=== PATIENT | female | born 1960 | race Caucasian/White ===

== ENCOUNTER → 2016-12-18 | Outpatient (CLI) | payer BC | END | disposition home or self-care (01) | LOC: GMAB 10:14 | PROVIDERS: ATTEND Family Medicine | DX: Z00.01 Encounter for general adult medical examination with abnormal findings (principal) ==

== ENCOUNTER → 2016-12-21 | Outpatient (CLI) | payer BC ==
--- NOTE | 2016-12-21 11:39 | CT ---
EXAM DESCRIPTION: Abdomen/Pelvis w/wo Contrast CLINICAL HISTORY: HEMATURIA COMPARISON: None. TECHNIQUE: And postcontrast CT images of the abdomen and pelvis are obtained. CT scan done according to ALARA (As Low As Reasonably Achievable). FINDINGS: Visualized lung bases are unremarkable. Liver, spleen, pancreas, and adrenal glands are unremarkable. Surgical clips from cholecystectomy are seen without biliary tract obstruction. Vasculature is unremarkable. Kidneys show no abnormal calcifications. 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 There is normal cortical enhancement. No solid renal mass is seen. No ureteral obstruction is identified. Contrast fills the urinary bladder on delayed images. There are surgical absence of uterus. The ovaries are not identified. Mixed is unremarkable. No small bowel obstruction is seen. Mildly increased amount of formed fecal material in the right to transverse colon is seen. No significant diverticular disease is appreciated. No pathologic lymphadenopathy is identified. The osseous structures show no aggressive bony lesions. Mild degenerative changes of the spine are seen. IMPRESSION: No acute findings on CT of the abdomen and pelvis. No CT etiology for patient's hematuria. Mild patient or obstipation of the colon. Electronically signed by: Aiden Matos MD 12/21/2016 11:38 AM CDT
== END | disposition home or self-care (01) ==
LOC: CT 09:21
PROVIDERS: ATTEND Family Medicine
DX: R31.1 Benign essential microscopic hematuria (principal)

== ENCOUNTER → 2017-05-13 | Outpatient (CLI) | payer BC ==
--- NOTE | 2017-05-14 11:22 | MAM ---
EXAM DESCRIPTION: 3D Screening BILATERAL CLINICAL HISTORY: 56 yearsFemaleSCREENING. No complaints. Maternal grandmother with ovarian cancer. Postmenopausal. Currently on HRT.. COMPARISON: 2-D digital screening bilateral examination 08/25/2014. No prior reports available. TECHNIQUE: Bilateral CC and MLO projection full-field images, 3-D tomosynthesis digital mammographic technique. Also bilateral synthesized CC/ MLO full-field images. CAD not utilized. FINDINGS: The breast parenchymal density pattern is: Scattered areas of fibroglandular density. No skin thickening or nipple retraction oval-shaped mass density with partially well-circumscribed borders in the posterior third of the lower outer quadrant of the right breast at the 830 clock position, approximately 5.5 cm from the nipple. Approximately 1.5 cm long axis. This may have been present on the prior study. No definite calcifications. Bilateral axillary lymph nodes. No focal asymmetry , and no suspicious microcalcifications bilaterally. No focal mass density in the left breast. IMPRESSION: BI-RADS CATEGORY: 0 - INCOMPLETE- Need additional imaging evaluation. FOLLOW-UP: Recall for additional imaging: Targeted ultrasound of the posterior third, lower outer quadrant right breast, in the region of interest. Written communication explaining the results and follow-up will be mailed to the patient and referring care provider. Electronically signed by: Kobi Rocha MD 05/14/2017 11:20 AM CDT Workstation: [id number]
== END ==
LOC: MAMMO 13:30
PROVIDERS: ATTEND Family Medicine
DX: Z12.31 Encounter for screening mammogram for malignant neoplasm of breast (principal)
CPT/HCPCS: 77063; G0202

== ENCOUNTER → 2017-05-21 | Outpatient (CLI) | payer BC ==
--- NOTE | 2017-05-21 14:06 | US ---
EXAM DESCRIPTION: Breast,Right CLINICAL HISTORY: 56 yearsFemaleABN MAMMO COMPARISON: Digital 3-D breast tomosynthesis right breast 05/13/2017. TECHNIQUE: Transcutaneous scanning of the lower outer quadrant of the right breast utilizing two-dimensional and Doppler modes. Scanning performed by the can repairer and Dr. Rocha. FINDINGS: Hypoechoic mass with mostly well-circumscribed circumscribed borders and partially lobulated borders and heterogeneous echoes at the 800 clock position 3 cm from the nipple. Parallel orientation with mostly posterior attenuation. Dimensions are 9.8 x 6.0 mm with no vascularity. This lesion is indeterminate. A smaller well more defined lesion can be seen at the 900 clock position 5 cm from the right nipple. Dimensions are 6.6 x 6.2 mm with hypoechoic echoes and central septation. Parallel orientation with posterior acoustic enhancement. Nonvascular. These are most likely cysts or septated cyst. No large calcifications or simple cysts are seen during the scan. IMPRESSION: BI-RADS CATEGORY: 4A - LOW SUSPICION FOR MALIGNANCY. Surgical consultation and tissue diagnosis should be considered (for the indeterminate lesion in the right breast). The findings and the follow-up plan were reviewed in person with the patient after the examination. Written Communication explaining the results and follow-up will be mailed to the patient and referring care provider. CRITICAL COMMUNICATION: The critical value was discussed directly by phone with Dr. Giacomo Franks at approximately 1350 hours, on May 21, 2017. Electronically signed by: Kobi Rocha MD 05/21/2017 2:05 PM CDT Workstation: [id number]
== END | disposition home or self-care (01) ==
LOC: US 12:44
PROVIDERS: ATTEND Family Medicine
DX: R92.8 Other abnormal and inconclusive findings on diagnostic imaging of breast (principal)

== ENCOUNTER → 2017-05-29 | Outpatient (CLI) | payer BC ==
--- NOTE | 2017-05-29 09:45 | OP ---
DATE OF PROCEDURE: 05/29/17 PREOPERATIVE DIAGNOSIS: 1. Abnormal mammogram with cystic lesion and mass. POSTOPERATIVE DIAGNOSIS: 1. Abnormal mammogram with cystic lesion and mass. PROCEDURE: 1. Sonographically guided aspiration, right breast cyst. 2. Sonographically needle core biopsy, right breast mass. SURGEON: Maciol Aj MD. REGIONAL SALES MANAGER: None. ANESTHESIA: Local infiltration of 1% lidocaine. INDICATION: The patient is a 56-year-old female who on routine mammography was found to have a cystic lesion in the lateral right breast and a solid mass in the lower outer quadrant. She was brought to the Ultrasound Suite today for aspiration of the cystic mass and needle core biopsy of the solid mass under ultrasound guidance. FINDINGS: The ultrasound revealed that the cyst had collapsed after aspiration and fluid was sent for cytologic evaluation. The ultrasound revealed the needle core biopsy device within the mass. Pathology is pending. PROCEDURE: The patient was placed in the supine position in the Ultrasound Suite. The right breast was examined using the ultrasound device. The lesions were identified. The medial inferior aspect of the breast was prepped with Betadine and draped. Local infiltration of anesthesia was obtained. The cystic mass was identified and using a 22-gauge needle, and on attempts aspirate it, we were unable to aspirate fluid, so an 18-gauge needle was introduced into the cyst. The cyst collapsed and the fluid was sent for cytologic evaluation. At this point, the solid mass was identified and the area medial to the probe was prepped with Betadine, then local infiltration of anesthesia was obtained. A stab wound was made with a 15 blade and multiple passes were made with the biopsy device with cores taken. These were sent for pathologic evaluation. Hemostasis was obtained with pressure and then the incision was closed with a single 4-0 Nylon simple suture. Sterile pressure dressing was applied. The patient tolerated the procedure well. Estimated blood loss was nil. The patient will followup in five days. #[id number] [facility]
--- NOTE | 2017-05-29 10:50 | US ---
EXAM DESCRIPTION: Biopsy/Needle Guidance CLINICAL HISTORY: 56 yearsFemaleABNORMAL MAMMO COMPARISON: Diagnostic ultrasound of the right breast on 05/21/2017. TECHNIQUE: The procedure was performed by Dr. Aj. Repeat ultrasound localized the lesion at the 800 clock position of the right breast. Sterile preparation. Sterile ultrasound guidance. FINDINGS: Again noted is a partially lobulated partially well-circumscribed hypoechoic solid mass with anti- parallel orientation and mixed posterior features. In the nearby soft tissues is a septated cyst or two cysts abutting each other with well-defined marcial and parallel orientation. Posterior acoustic enhancement. The core needle biopsy system is visualized within the solid mass, and the smaller cystic object on orthogonal axes. Adequate specimens were obtained. IMPRESSION: Successful, ultrasound-guided fine-needle core biopsy of a solid mass and a cystic mass in the right breast. Pathology examination at remote facility, results pending. Electronically signed by: Kobi Rocha MD 05/29/2017 10:48 AM CDT
== END | disposition home or self-care (01) ==
LOC: US 07:50
PROVIDERS: ATTEND Surgery
PROC: 0H9T3ZX Drainage of Right Breast, Percutaneous Approach, Diagnostic (ICD-10-PCS; principal; 2017-05-29)
DX: R92.8 Other abnormal and inconclusive findings on diagnostic imaging of breast (principal)

== ENCOUNTER → 2017-12-17 | Outpatient (CLI) | payer BC | LOC: GMAB 10:33 | PROVIDERS: ATTEND Family Medicine | DX: Z00.01 Encounter for general adult medical examination with abnormal findings (principal) ==

== ENCOUNTER → 2018-11-20 | Outpatient (CLI) | payer BC | LOC: GMAE 16:46 | PROVIDERS: ATTEND Family Medicine | DX: K58.9 Irritable bowel syndrome, unspecified (principal) ==

== ENCOUNTER → 2018-12-10 | Outpatient (CLI) | payer BC | LOC: LAB.O 12:07 | PROVIDERS: ATTEND Internal Medicine Hematology & Oncology | DX: C7A.00 Malignant carcinoid tumor of unspecified site (principal) ==

== ENCOUNTER → 2019-03-09 | Outpatient (CLI) | payer BC ==
--- NOTE | 2019-03-16 15:11 | MAM ---
EXAM DESCRIPTION: 3D Screening BILATERAL : Digital Mammography. CLINICAL HISTORY: 58 years Female ANNUAL SCREENING . No complaints or personal history of breast cancer. No family history of breast cancer but family history of ovarian cancer. Childbirth. Premenopausal. Currently on HRT. 2 prior benign biopsies right breast. Lifetime risk of developing breast cancer (Tyrer-Cuzick model)(%): 8.5. COMPARISON: Bilateral screening digital breast tomosynthesis 05/13/2017. TECHNIQUE: Bilateral CC and MLO projection full-field images, digital tomosynthesis mammographic technique. Bilateral digital 2-D full-field MLO images. CAD not available for tomosynthesis or 2-D images. FINDINGS: The breast parenchymal density pattern is: Heterogeneously dense breast tissue, which may obscure small masses. No skin thickening or nipple retraction. Slightly increased density in the region of prior biopsy, lateral right breast. Bilateral small solitary microcalcifications. No new focal, stellate mass or density, focal asymmetry , and no suspicious microcalcifications bilaterally. IMPRESSION: Benign exam. BIRAD CATEGORY: 2 BENIGN FINDINGS. RECOMMENDATIONS: FOLLOW UP: Routine digital bilateral mammographic screening, one year interval from February 2019. Written communication explaining the IMPRESSION and follow-up, will be mailed to the patient and referring health care provider. According to the [employer], yearly mammograms are recommended starting at age 40 and continuing as long as a woman is in good health. Any breast change noted on a breast self-exam should be reported promptly to the patient's healthcare provider. Breast MRI is recommended for women with an approximately 20-25% or greater lifetime risk of breast cancer, including women with a strong family history of breast or ovarian cancer and women who have been treated for Hodgkin's disease. A negative mammographic report should not delay tissue diagnosis in patients with significant clinical history or physical findings. Extremely dense breast tissue limits the sensitivity of digital mammography. Electronically signed by: Kobi Rocha MD 03/16/2019 3:09 PM CDT
== END ==
LOC: MAMMO 13:10
PROVIDERS: ATTEND Family Medicine
DX: Z12.31 Encounter for screening mammogram for malignant neoplasm of breast (principal)

== ENCOUNTER → 2019-03-18 | Outpatient (CLI) | payer BC | LOC: LAB.O 11:05 | DX: K59.1 Functional diarrhea (principal); R19.4 Change in bowel habit ==

== ENCOUNTER → 2019-06-03 | Outpatient (CLI) | payer BC | LOC: GMAE 10:29 | PROVIDERS: ATTEND Family Medicine | DX: Z00.00 Encounter for general adult medical examination without abnormal findings (principal) ==

== ENCOUNTER → 2020-08-04 | Outpatient (CLI) | payer OTHER | LOC: GMAE 10:51 | PROVIDERS: ATTEND Family Medicine | DX: Z79.899 Other long term (current) drug therapy (principal); E78.5 Hyperlipidemia, unspecified ==

== ENCOUNTER → 2020-08-15 | Outpatient (CLI) | payer OTHER | LOC: GMAE 16:36 | PROVIDERS: ATTEND Family Medicine | DX: R94.6 Abnormal results of thyroid function studies (principal); R73.01 Impaired fasting glucose ==